=== PATIENT | female | born 1980 | race Hispanic/Latino ===

== ENCOUNTER 2020-08-25 17:01 | Emergency (ER) | payer MEDICAID ==
[2020-08-25 17:37] VITALS: BP 138/82
--- NOTE | 2020-08-25 17:56 | Emergency Department Report ---
ED Altered Mental Status HPI - General Chief Complaint: Overdose Stated Complaint: AMS Time Seen by Provider: 08/25/20 17:31 Source: EMS Mode of arrival: Stretcher Limitations: No Limitations - History of Present Illness Initial Comments: 39-year-old female presents to ED with possible overdose. EMS reports patient's neighbors called EMS because patient was at their house and she was not acting right. When they went over to her house, patient was unresponsive. Upon EMS arrival, patient found to have pinpoint pupils. Narcan 2 mg were given and luba odonnell immediately woke up. Patient is currently asleep on stretcher, easily arousable. She denies any drug use, heroin use, use of pain pills. She denies any medical history. Patient angry, demanding to use a phone and called her . MD Complaint: altered mental status -: This afternoon Severity: moderate Context: drug abuse (POSSIBLE) Associated Symptoms: denies other symptoms Treatments Prior to Arrival: other pre-hosp med (NARCAN) ED Review of Systems ROS: Stated complaint: AMS Other details as noted in HPI Comment: All other systems reviewed and negative Respiratory: denies: shortness of breath Cardiovascular: denies: chest pain Gastrointestinal: denies: abdominal pain Neurological: denies: headache ED Past Medical Hx - Past Medical History Previous Medical History?: No - Surgical History Past Surgical History?: No - Social History Smoking Status: Unknown if ever smoked ED Physical Exam - General Limitations: No Limitations General appearance: alert, in no apparent distress, other (Appears disheveled ) - Head Head exam: Present: atraumatic, normocephalic - Eye Eye exam: Present: EOMI Pupils: Present: other (pinpoint) - ENT ENT exam: Present: mucous membranes moist - Neck Neck exam: Present: normal inspection - Respiratory Respiratory exam: Present: normal lung sounds bilaterally. Absent: respiratory distress - Cardiovascular Cardiovascular Exam: Present: regular rate, normal rhythm - GI/Abdominal GI/Abdominal exam: Present: soft. Absent: distended, tenderness - Extremities Exam Extremities exam: Present: normal inspection - Neurological Exam Neurological exam: Present: alert, oriented X3, CN II-XII intact. Absent: motor sensory deficit - Psychiatric Psychiatric exam: Present: other (mood is angry) - Skin Skin exam: Present: warm, dry, intact, normal color ED Course Vital Signs 08/25/20 08/25/20 17:29 17:30 Pulse Rate 64 56 L Respiratory 16 14 Rate Blood Pressure 138/82 138/82 O2 Sat by Pulse 97 99 Oximetry - Reevaluation(s) Reevaluation #1: 08/25/20 18:16 Pt leaving AMA despite our efforts. She has normal mental status and full decisional capacity. The patient understands her condition of likely accidental opioid overdose and the risks of leaving AMA, including but not limited to permanent disability and . She has had an opportunity ask questions about her medical condition. Patient has been informed that she may return for care anytime. Patient was offered outpatient rehab resources, but refused and left prior to receiving any paperwork. - Medical Decision Making 39-year-old female, likely opiate overdose, as her altered mental status resolved after receiving Narcan. Patient currently awake and alert x3, no neuro deficits. Patient refusing work-up and observation here in the ED. She has left AMA. - Differential Diagnosis Opiate overdose Critical care attestation.: If time is entered above; I have spent that time in minutes in the direct care of this critically ill patient, excluding procedure time. ED Disposition Clinical Impression: Opiate or related narcotic overdose Disposition: DC-07 LEFT AGAINST MED ADVICE Is pt being admited?: No Condition: Stable Referrals: PRIMARY CARE, [Primary Care Provider] - 3-5 Days
== END 2020-08-25 18:57 | disposition left against medical advice (07) ==
LOC: ED 17:01
DX: T40.601A Poisoning by unspecified narcotics, accidental (unintentional), initial encounter (principal); R41.82 Altered mental status, unspecified; Y92.89 Other specified places as the place of occurrence of the external cause
CPT/HCPCS: 99283